=== PATIENT | female | born 1965 | race Two or more races ===

== ENCOUNTER 2024-04-06 07:58 | Outpatient (CLI) | payer OTHER | END 2024-04-06 08:29 | disposition home or self-care (01) | LOC: TOM 07:58 | DX: K57.80 Diverticulitis of intestine, part unspecified, with perforation and abscess without bleeding (principal); K59.00 Constipation, unspecified; R10.84 Generalized abdominal pain; R10.9 Unspecified abdominal pain ==

== ENCOUNTER 2024-05-30 08:05 | Outpatient (CLI) | payer OTHER | END 2024-05-30 08:14 | disposition home or self-care (01) | LOC: RAD 08:05 | DX: M12.561 Traumatic arthropathy, right knee (principal) ==

== ENCOUNTER 2024-06-18 08:40 | Outpatient (CLI) | payer OTHER | END 2024-06-18 09:00 | disposition home or self-care (01) | LOC: MRI 08:40 | PROVIDERS: ATTEND Orthopaedic Surgery | DX: S83.241A Other tear of medial meniscus, current injury, right knee, initial encounter (principal) | CPT/HCPCS: 73721 ==

== ENCOUNTER 2024-10-11 20:16 | Emergency (ER) | payer OTHER ==
[~2024-10-11] VITALS: Ht 152.4 cm; Wt 65.8 kg
[2024-10-11] MEDS ORDERED: ACETAMINOPHEN 500 MG GEL..CAP PO STA (22:38)
[2024-10-11] MEDS ORDERED: KETOROLAC TROMETHAMINE 60 MG VIAL IM STA (22:38)
== END 2024-10-12 00:21 | disposition home or self-care (01) ==
LOC: ER 20:18
DX: S70.01XA Contusion of right hip, initial encounter (principal); W01.0XXA Fall on same level from slipping, tripping and stumbling without subsequent striking against object, initial encounter; Y93.89 Activity, other specified; Y92.018 Other place in single-family (private) house as the place of occurrence of the external cause; Z88.0 Allergy status to penicillin

== ENCOUNTER 2024-10-15 13:17 | Outpatient (CLI) | payer OTHER | END 2024-10-15 13:26 | disposition home or self-care (01) | LOC: MRI 13:17 | PROVIDERS: ATTEND Orthopaedic Surgery | DX: M25.551 Pain in right hip (principal) | CPT/HCPCS: 73721 ==